=== PATIENT | female | born 1980 ===

== ENCOUNTER 2016-10-04 17:49 | Emergency (ER) | payer SELFPAY ==
[2016-10-04 18:00] VITALS: BMI 35.9
--- NOTE | 2016-10-04 18:07 | ED PDOC ---
Arrival/HPI - General Chief Complaint: Female Genitourinary Time Seen by Provider: 10/04/16 18:06 Historian: Patient - History of Present Illness Narrative History of Present Illness (Text): 10/04/16 18:07 36 y/o female, no pmh, nkda, LMP 09/09/2016 and not sure about the age of gestation for this , , c/o vaginal spotting on and off with lower back pain x 1 week with no fall or trauma. Aching and cramping pain, no fever or chills, no urinary symptoms, no fatigue or lethargic, no night sweat, no rash , no weight loss, no other medical or psychological complaints. Past Medical History - Provider Review Nursing Documentation Reviewed: Yes - Infectious Disease Hx of Infectious Diseases: None - Psychiatric Hx Substance Use: No - Surgical History Hx Section: Yes (x2) - Anesthesia Hx Anesthesia: Yes Hx Anesthesia Reactions: No Family/Social History - Physician Review Nursing Documentation Reviewed: Yes Family/Social History: Unknown Family HX Smoking Status: Never Smoked Hx Alcohol Use: No Hx Substance Use: No Allergies/Home Meds Allergies/Adverse Reactions: Allergies No Known Allergies Allergy (Verified 10/04/16 17:59) Home Medications: Home Meds Medication Instructions Recorded Confirmed No Known Home Med 10/04/16 10/04/16 Review of Systems - Review of Systems Constitutional: absent: Fatigue, Fevers Eyes: absent: Vision Changes ENT: absent: Hearing Changes, Sore Throat, Rhinorrhea Respiratory: absent: SOB, Cough Cardiovascular: absent: Chest Pain Gastrointestinal: absent: Abdominal Pain, Nausea, Vomiting Genitourinary Female: Vaginal Bleeding. absent: Dysuria, Frequency, Hematuria, Urine Output Changes, Vaginal Discharge Musculoskeletal: absent: Arthralgias, Back Pain Skin: absent: Rash, Pruritis, Skin Lesions Neurological: absent: Headache, Dizziness Physical Exam Vital Signs Reviewed: Yes Vital Signs Temp Pulse Resp BP Pulse Ox 10/04/16 18:03 98.7 F 77 19 133/83 98 Temperature: Afebrile Blood Pressure: Normal Pulse: Regular Respiratory Rate: Normal Appearance: Positive for: Well-Appearing, Non-Toxic, Comfortable Pain Distress: None Mental Status: Positive for: Alert and Oriented X 3 - Systems Exam Head: Present: Atraumatic, Normocephalic Pupils: Present: PERRL Extroacular Muscles: Present: EOMI Conjunctiva: Present: Normal Mouth: Present: Moist Mucous Membranes Respiratory/Chest: Present: Clear to Auscultation, Good Air Exchange. No: Respiratory Distress, Accessory Muscle Use Cardiovascular: Present: Regular Rate and Rhythm, Normal S1, S2. No: Murmurs Abdomen: Present: Normal Bowel Sounds. 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 No: Vaginal Discharge, Vaginal Bleeding, Vaginal Lesions, Adenexal Tenderness, Adenexal Mass , Cervical Motion Tendernes, Odor Back: Present: Normal Inspection Upper Extremity: Present: Normal Inspection. No: Cyanosis, Edema Lower Extremity: Present: Normal Inspection. No: Edema Neurological: Present: GCS=15, Speech Normal, Motor Func Grossly Intact, Memory Normal Skin: Present: Warm, Dry, Normal Color. No: Rashes Psychiatric: Present: Alert, Oriented x 3, Normal Insight, Normal Concentration Medical Decision Making ED Course and Treatment: 10/04/16 18:07 -labs/ua/type and screen/beta hcg -transvaginal sonogram -observe and reassess 10/04/16 21:45 -Labs are non-significant except beta hcg 82631 -UA show no UTI -Sonogram show 5 week 4 day single intrauterine gestation estimated dated delivery 06/02/17 -Blood type O+ -Discharge home with education on follow up with your own pmd and obgyn within 2 days for repeat [place] [address], bed rest, no sexual activities until clear by the obgyn, elevation, pelvic rest, return to the ER for any new or worsening signs or symptoms. - Lab Interpretations Lab Results: 10/04/16 18:40 10/04/16 18:40 Lab Results 10/04/16 18:40: Blood Type O POSITIVE, Antibody Screen Negative, BBK History Checked No verified bt 10/04/16 18:40: Beta HCG, Quant 02279.00 H 10/04/16 18:40: Sodium 138, Potassium 3.7, Chloride 104, Carbon Dioxide 22, Anion Gap 16, BUN 21, Creatinine 0.6, Est GFR ( Amer) > 60, Est GFR (Non- Af Amer) > 60, Random Glucose 95, Calcium 9.0, Total Bilirubin 0.6, AST 23, ALT 27, Alkaline Phosphatase 63, Total Protein 7.7, Albumin 4.4, Globulin 3.4, Albumin/Globulin Ratio 1.3 10/04/16 18:40: Urine Color Yellow, Urine Appearance Clear, Urine pH 6.0, Ur Specific Schwertner 1.025, Urine Protein 30 H, Urine Glucose (UA) Negative, Urine Ketones Negative, Urine Blood Large H, Urine Nitrate Negative, Urine Bilirubin Negative, Urine Urobilinogen 0.2, Ur Leukocyte Esterase Negative, Urine RBC 5 - 10, Urine WBC 2 - 5, Ur Epithelial Cells 10 - 12, Urine Bacteria Few 10/04/16 18:40: WBC 8.6, RBC 4.26, Hgb 13.1, Hct 36.9, MCV 86.6, MCH 30.8, MCHC 35.5, RDW 13.3, Plt Count 192, MPV 9.6, Gran % 68.1 H, Lymph % (Auto) 25.7, [place] % (Auto) 5.4, Eos % (Auto) 0.7 L, Baso % (Auto) 0.1, Gran # 5.85, Lymph # 2.2, [place] # 0.5, Eos # 0.1, Baso # 0.01 I have reviewed the lab results: Yes Interpretation: Abnormal lab values (beta hcg 98748) - RAD Interpretation Radiology Orders: 10/04/16 18:07 OB TRANSVAGINAL [US] Stat [facility] Division of Radiology [address] [address] Tel. no. Patient Name: JUAN C HUTCHISON Pt. Address: [address] [place] [address] Rec #: [id number] [place] [address]: Lucy REYNOSO,Segundo Pate Pt CELL Order Location: ED : 1980 Female Age: 36 Order #: [id number] Reason for exam: vaginal bleeding, approx. 12 weeks? Ultrasound OB TRANSVAGINAL Exam Date: 10/04/16 This imaging exam was performed at [facility] EXAM: US First Trimester, Transabdominal CLINICAL HISTORY: 36 years old, female; Pain; complicated by abdominal or pelvic pain; Left lower quadrant; First trimester; Gestational age or lmp: 08-10-2016 ; ; Additional info: Vaginal bleeding, approx. 12 weeks? TECHNIQUE: Real-time transabdominal obstetrical ultrasound of the maternal pelvis and a first trimester with image documentation. COMPARISON: There are no prior studies for comparison. FINDINGS: Gestation: There is a small gestational sac in the uterus difficult to characterize Uterus: Uterus measures approximately 10 x 4.2 x 7.3 cm. There is a small gestational sac in the uterine fundus. Endometrium in the uterine body measures 6.6 mm in width. The cervix measures approximately 4 cm in length. Ovaries: Neither ovary could be identified Free fluid: There is no free fluid. IMPRESSION: Early intrauterine gestation difficult to characterize EXAM: US , Transvaginal CLINICAL HISTORY: 36 years old, female; Pain; complicated by abdominal or pelvic pain; Left lower quadrant; First trimester; Gestational age or lmp: 08-10-2016 ; ; Additional info: Vaginal bleeding, approx. 12 weeks? TECHNIQUE: Real-time transvaginal obstetrical ultrasound of the maternal pelvis and a first trimester with image documentation. Transvaginal imaging was used for better evaluation of the fetus and adnexa. EXAM DATE/TIME: 10/04/2016 6:07 PM COMPARISON: There are no prior studies for comparison. FINDINGS: Gestation: There is a single intrauterine gestation. Gestational sac has mean diameter 12.8 mm. A yolk sac is present, internal diameter measures approximately 3 mm. Structure suggestive of a pole measures 2.2 mm. Cardiac activity could not be visualized at this time Uterus: Uterus is retroflexed. Cervix measures approximately 3 point centimeters in line Ovaries: Right ovary measures approximately 3.2 x 1.8 x 2.4 cm. There is a corpus luteum in the right ovary. Left ovary measures approximately 2.5 x 1.9 x 1.4 cm. There are multiple follicles in the left ovary. There is flow in both ovaries on Doppler imaging. Free fluid: There is no free fluid. IMPRESSION: 5 week 4 day single intrauterine gestation estimated dated delivery 06/02/17 Followup suggested to document development of cardiac activity Dictated By: Shital Jo MD, MD Dictated Date/Time: 10/04/162038 Signed By: Shital Jo MD Date Signed: 2038 Transcribed By: CHANTE Transcribe Date/Time : 10/04/162038 Career Center Director: Radiologist - PA / WIND UP WORKER / Resident Statement MD/DO has reviewed & agrees with the documentation as recorded. Disposition/Present on Arrival - Present on Arrival Any Indicators Present on Arrival: No History of DVT/PE: No History of Uncontrolled Diabetes: No Urinary Catheter: No History of Decub. Ulcer: No History Surgical Site Infection Following: None - Disposition Have Diagnosis and Disposition been Completed?: Yes Diagnosis: , Vaginal bleeding Disposition: HOME/ ROUTINE Disposition Time: 21:49 Patient Plan: Discharge Condition: GOOD Additional Instructions: -Discharge home with education on follow up with your own pmd and obgyn within 2 days for [place] [address], bed rest, no sexual activities until clear by the obgyn, elevation, pelvic rest, return to the ER for any new or worsening signs or symptoms. Referrals: Bozena Hui CNM, RN [Primary Care Provider] - Follow up with primary Wallace Mejia MD [Staff Provider] - Follow up with primary Forms: [employer] (Kazakh), WORK NOTE
[2016-10-04 18:58] LABS: BASO # 0.01 K/mm3 (0.0-2.0); BASO % 0.1 % (0.0-3.0); EOS # 0.1 (0.0-0.7); EOS % 0.7 % (1.5-5.0); GRAN # 5.85 (1.4-6.5); GRAN % 68.1 % (50.0-68.0); HEMOGLOBIN 13.1 g/dL (12.0-16.0); LYMPH # 2.2 (1.2-3.4); LYMPH % 25.7 % (22.0-35.0); MEAN CELL VOLUME 86.6 fl (80.0-105.0); MEAN CORPUSCULAR HEMOGLOBIN 30.8 pg (25.0-35.0); MEAN CORPUSCULAR HGB CONC 35.5 g/dl (31.0-37.0); MEAN PLATELET VOLUME 9.6 fl (7.0-11.0); MONO # 0.5 (0.1-0.6); MONO % 5.4 % (1.0-6.0); PLATELET COUNT 192 10^3/uL (120.0-450.0); RBC 4.26 10^6/uL (3.5-6.1); RED CELL DISTRIBUTION WIDTH 13.3 % (11.5-14.5); URINE BILIRUBIN NEGATIVE (NEGATIVE); URINE BLOOD LARGE (NEGATIVE); URINE GLUCOSE (UA) NEGATIVE (NEGATIVE); URINE LEUKOCYTE ESTERASE NEGATIVE Leu/uL (NEGATIVE); URINE NITRATE NEGATIVE (NEGATIVE); URINE PROTEIN 30 mg/dL (<30 mg/dL); URINE UROBILINOGEN 0.2 E.U./dL (<1 E.U./dL); WHITE BLOOD COUNT 8.6 10^3/ul (4.5-11.0)
[2016-10-04 19:05] LABS: URINE APPEARANCE CLEAR (CLEAR); URINE COLOR YELLOW (YELLOW)
[2016-10-04 19:09] LABS: ALB/GLOB RATIO 1.3 (1.1-1.8); ALBUMIN 4.4 g/dL (3.0-4.8); ALT/SGPT 27 U/L (7-56); AST/SGOT 23 U/L (15-39); BLOOD UREA NITROGEN 21 mg/dL (7-21); GFR AFRICAN-AMERICAN > 60; GFR NON-AFRICAN AMERICAN > 60
[2016-10-04 19:12] LABS: URINE BACTERIA FEW (NEG)
--- NOTE | 2016-10-04 20:39 | US ---
EXAM: US First Trimester, Transabdominal CLINICAL HISTORY: 36 years old, female; Pain; complicated by abdominal or pelvic pain; Left lower quadrant; First trimester; Gestational age or lmp: 08-10-2016; ; Additional info: Vaginal bleeding, approx. 12 weeks? TECHNIQUE: Real-time transabdominal obstetrical ultrasound of the maternal pelvis and a first trimester with image documentation. COMPARISON: There are no prior studies for comparison. FINDINGS: Gestation: There is a small gestational sac in the uterus difficult to characterize Uterus: Uterus measures approximately 10 x 4.2 x 7.3 cm. There is a small gestational sac in the uterine fundus. Endometrium in the uterine body measures 6.6 mm in width. The cervix measures approximately 4 cm in length. Ovaries: Neither ovary could be identified Free fluid: There is no free fluid. IMPRESSION: Early intrauterine gestation difficult to characterize EXAM: US , Transvaginal CLINICAL HISTORY: 36 years old, female; Pain; complicated by abdominal or pelvic pain; Left lower quadrant; First trimester; Gestational age or lmp: 08-10-2016; ; Additional info: Vaginal bleeding, approx. 12 weeks? TECHNIQUE: Real-time transvaginal obstetrical ultrasound of the maternal pelvis and a first trimester with image documentation. Transvaginal imaging was used for better evaluation of the fetus and adnexa. EXAM DATE/TIME: 10/04/2016 6:07 PM COMPARISON: There are no prior studies for comparison. FINDINGS: Gestation: There is a single intrauterine gestation. Gestational sac has mean diameter 12.8 mm. A yolk sac is present, internal diameter measures approximately 3 mm. Structure suggestive of a pole measures 2.2 mm. Cardiac activity could not be visualized at this time Uterus: Uterus is retroflexed. Cervix measures approximately 3 point centimeters in line Ovaries: Right ovary measures approximately 3.2 x 1.8 x 2.4 cm. There is a corpus luteum in the right ovary. Left ovary measures approximately 2.5 x 1.9 x 1.4 cm. There are multiple follicles in the left ovary. There is flow in both ovaries on Doppler imaging. Free fluid: There is no free fluid. IMPRESSION: 5 week 4 day single intrauterine gestation estimated dated delivery 06/02/17 Followup suggested to document development of cardiac activity
[2016-10-04 22:00] VITALS: BP 131/85; PULSE 80; RESP 18; TEMP 98.2; O2SAT 99
== END 2016-10-04 22:00 | disposition home or self-care (01) ==
LOC: ED 17:49
DX: O46.91 Antepartum hemorrhage, unspecified, first trimester (principal); Z3A.01 Less than 8 weeks gestation of pregnancy

== ENCOUNTER 2016-10-15 16:21 | Emergency (ER) | payer SELFPAY ==
[2016-10-15 16:21] VITALS: BMI 35.9
[2016-10-15 16:52] VITALS: RESP 18; TEMP 98.2
--- NOTE | 2016-10-15 17:14 | ED PDOC ---
"Arrival/HPI - General Chief Complaint: Female Genitourinary Time Seen by Provider: 10/15/16 17:07 Historian: Patient, Spouse - History of Present Illness Narrative History of Present Illness (Text): 10/15/16 17:08 This 36 yo female , , LMP: 09-09-2016, presents to this ED c/o passing of product of conception vaginally x 1 hour. Patient stated patient had a positive test on 10-04-2016. 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 Patient was recommended to come to ED. Patient was seen in this ED . Patient stated vaginal bleeding worsen x 3 days ago, so she went to [facility]. Patient stated ultrasound did not visualized embryo, and she was told she maybe having a miscarriage. Patient stated vaginal bleeding , and pelvic pain worsen today. She stated she saw tissue passing vaginally today. Pelvic pain improved after passing tissue. Denies other complains. Time/Duration: Other (see hpi) Context: Home Past Medical History - Provider Review Nursing Documentation Reviewed: Yes - Infectious Disease Hx of Infectious Diseases: None - Psychiatric Hx Substance Use: No - Surgical History Hx Section: Yes (x2) - Anesthesia Hx Anesthesia: Yes Hx Anesthesia Reactions: No Hx Malignant Hyperthermia: No Family/Social History - Physician Review Nursing Documentation Reviewed: Yes Family/Social History: Other (non-contributory) Smoking Status: Never Smoked Hx Alcohol Use: No Hx Substance Use: No Allergies/Home Meds Allergies/Adverse Reactions: Allergies No Known Allergies Allergy (Verified 10/15/16 16:47) Home Medications: Home Meds Medication Instructions Recorded Confirmed No Known Home Med 10/04/16 10/15/16 Review of Systems - Review of Systems Constitutional: Normal. absent: Fatigue, Weight Change, Fevers Eyes: Normal ENT: Normal Respiratory: Normal. absent: SOB, Cough Cardiovascular: Normal. absent: Chest Pain, Palpitations Gastrointestinal: Normal. absent: Nausea, Vomiting Genitourinary Female: Vaginal Bleeding, Other (pelvic pain). absent: Dysuria, Frequency, Hematuria, Vaginal Discharge Musculoskeletal: Normal. absent: Back Pain, Neck Pain Skin: Normal. absent: Rash Neurological: Normal. absent: Headache, Dizziness, Focal Weakness, Gait Changes , Speech Changes, Facial Droop, Disequilibrium, Seizure Endocrine: Normal Hemo/Lymphatic: Normal Psychiatric: Normal Physical Exam Vital Signs Temp Pulse Resp BP Pulse Ox 10/15/16 20:59 80 18 137/74 100 10/15/16 17:50 79 18 130/75 99 10/15/16 16:52 98.2 F 84 18 132/78 99 Temperature: Afebrile Blood Pressure: Normal Pulse: Regular Respiratory Rate: Normal Appearance: Positive for: Well-Appearing, Non-Toxic, Comfortable Pain Distress: None Mental Status: Positive for: Alert and Oriented X 3 - Systems Exam Head: Present: Atraumatic, Normocephalic Pupils: Present: PERRL Extroacular Muscles: Present: EOMI Conjunctiva: Present: Normal Mouth: Present: Moist Mucous Membranes Neck: Present: Normal Range of Motion Respiratory/Chest: Present: Clear to Auscultation, Good Air Exchange. No: Respiratory Distress, Accessory Muscle Use Cardiovascular: Present: Regular Rate and Rhythm, Normal S1, S2. No: Murmurs Abdomen: Present: Normal Bowel Sounds. No: Tenderness, Distention, Peritoneal Signs Back: Present: Normal Inspection Upper Extremity: Present: Normal Inspection. No: Cyanosis, Edema Lower Extremity: Present: Normal Inspection. No: Edema Neurological: Present: GCS=15, CN II-XII Intact, Speech Normal Skin: Present: Warm, Dry, Normal Color. No: Rashes Psychiatric: Present: Alert, Oriented x 3, Normal Insight, Normal Concentration Medical Decision Making ED Course and Treatment: 10/15/16 20:33 Patient is resting comfortably, and is in no acute distress. Patient was instructed to follow up with PMD in 1-2 days for further evaluation. Patient stated she is feeling better than when she arrived to ED. We reviewed ultrasound report. 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 She was recommended to return to emergency if symptoms worsen. Re-evaluation Time: 20:33 Reassessment Condition: Re-examined, Improved - Lab Interpretations Lab Results: 10/15/16 17:20 10/15/16 17:20 Lab Results 10/15/16 17:20: Beta HCG, Quant 8807.10 H 10/15/16 17:20: Sodium 138, Potassium 3.7, Chloride 102, Carbon Dioxide 24, Anion Gap 16, BUN 15, Creatinine 0.5, Est GFR ( Amer) > 60, Est GFR (Non- Af Amer) > 60, Random Glucose 94, Calcium 9.6 10/15/16 17:20: WBC 8.5, RBC 4.18, Hgb 12.7, Hct 35.9 L, MCV 85.9, MCH 30.4, MCHC 35.4, RDW 13.2, Plt Count 201, MPV 9.4, Gran % 63.3, Lymph % (Auto) 30.9, [place] % (Auto) 4.7, Eos % (Auto) 0.9 L, Baso % (Auto) 0.2, Gran # 5.39, Lymph # 2.6, [place] # 0.4, Eos # 0.1, Baso # 0.02 I have reviewed the lab results: Yes Interpretation: No clinic. lab abnormalty - RAD Interpretation Narrative RAD Interpretations (Text): 10/15/16 20:32 [facility] Final Radiology Report Call: [phone] assistance Online chat: [email or web address] Patient Name: JUAN C HUTCHISON FINDINGS: Gestation: No intrauterine gestational sac. Uterus/cervix: Endometrium: 1.4 cm in thickness. Closed cervix. Ovaries: Normal ovaries. No adnexal masses. Free fluid: No significant free fluid. IMPRESSION: 1. Findings compatible with spontaneous . 2. Incidental/non-acute findings are described above. EXAM: US , Transvaginal CLINICAL HISTORY: 36 years old, female; Signs and symptoms; Lmp or gestational age (in weeks): ; Other: Bleeding clots; ; Additional info: Vaginal cramping TECHNIQUE: JUAN C HUTCHISON | Final Radiology Report CONFIDENTIALITY STATEMENT This report is intended only for use by the referring physician, and only in accordance with law. If you received this in error, call [phone]. Page 2 of 2 Real-time transvaginal obstetrical ultrasound of the maternal pelvis and a first trimester with image documentation. Transvaginal imaging was used for better evaluation of the fetus and adnexa. COMPARISON: US - OB TRANSVAGINAL 10/04/2016 6:58:07 PM FINDINGS: Gestation: No intrauterine gestational sac. Uterus/cervix: Endometrium: 1.4 cm in thickness. Closed cervix. Ovaries: Normal ovaries. No adnexal masses. Free fluid: No significant free fluid. IMPRESSION: 1. Findings compatible with spontaneous . 2. Incidental/non-acute findings are described above. Thank you for allowing us to participate in the care of your patient. Dictated and Authenticated by: Jeff Farris MD 10/15/2016 8:26 PM Eastern Time ([place] & [place]) Radiology Orders: 10/15/16 17:15 OB TRANSVAGINAL [US] Stat Disposition/Present on Arrival - Present on Arrival Any Indicators Present on Arrival: No History of DVT/PE: No History of Uncontrolled Diabetes: No Urinary Catheter: No History of Decub. Ulcer: No History Surgical Site Infection Following: None - Disposition Have Diagnosis and Disposition been Completed?: Yes Diagnosis: , spontaneous Disposition: HOME/ ROUTINE Disposition Time: 20:34 Patient Plan: Discharge Condition: GOOD Discharge Instructions (ExitCare): Spontaneous Miscarriage (ED) Additional Instructions: Llame a webb ginecologo manana para un seguimiento medico. Regrese a la emergenci si desarrolla dolor or si sangreamento empeora Referrals: Giovanny Brumfield, [Non-Staff] - Follow up with primary Bozena Hui CNM, RN [Certified Nurse Power Marketer] - Follow up with primary [facility] [Outside] - Follow up with [facility] [Outside] - Follow up with primary Forms: [employer] (Hungarian)"
[2016-10-15 17:34] LABS: BASO # 0.02 K/mm3 (0.0-2.0); BASO % 0.2 % (0.0-3.0); EOS # 0.1 (0.0-0.7); EOS % 0.9 % (1.5-5.0); GRAN # 5.39 (1.4-6.5); GRAN % 63.3 % (50.0-68.0); HEMATOCRIT 35.9 % (36.0-48.0); LYMPH # 2.6 (1.2-3.4); LYMPH % 30.9 % (22.0-35.0); MEAN CELL VOLUME 85.9 fl (80.0-105.0); MEAN CORPUSCULAR HEMOGLOBIN 30.4 pg (25.0-35.0); MEAN CORPUSCULAR HGB CONC 35.4 g/dl (31.0-37.0); MEAN PLATELET VOLUME 9.4 fl (7.0-11.0); MONO # 0.4 (0.1-0.6); MONO % 4.7 % (1.0-6.0); RED CELL DISTRIBUTION WIDTH 13.2 % (11.5-14.5); WHITE BLOOD COUNT 8.5 10^3/ul (4.5-11.0)
[2016-10-15 17:43] LABS: BLOOD UREA NITROGEN 15 mg/dL (7-21); CALCIUM 9.6 mg/dL (8.4-10.5); CARBON DIOXIDE 24 mmol/L (21-33); CHLORIDE 102 mmol/L (98-107); GFR AFRICAN-AMERICAN > 60; GLUCOSE,RANDOM 94 mg/dL (70-110); POTASSIUM 3.7 mmol/L (3.6-5.0); SODIUM 138 mmol/L (132-148)
--- NOTE | 2016-10-15 20:27 | US ---
EXAM: US First Trimester, Transabdominal CLINICAL HISTORY: 36 years old, female; Signs and symptoms; Lmp or gestational age (in weeks): 08/10/16; Other: Bleeding clots; ; Additional info: Vaginal cramping TECHNIQUE: Real-time transabdominal obstetrical ultrasound of the maternal pelvis and a first trimester with image documentation. COMPARISON: US - OB TRANSVAGINAL 10/04/2016 6:58:07 PM FINDINGS: Gestation: No intrauterine gestational sac. Uterus/cervix: Endometrium: 1.4 cm in thickness. Closed cervix. Ovaries: Normal ovaries. No adnexal masses. Free fluid: No significant free fluid. IMPRESSION: 1. Findings compatible with spontaneous . 2. Incidental/non-acute findings are described above. EXAM: US , Transvaginal CLINICAL HISTORY: 36 years old, female; Signs and symptoms; Lmp or gestational age (in weeks): 08/10/16; Other: Bleeding clots; ; Additional info: Vaginal cramping TECHNIQUE: Real-time transvaginal obstetrical ultrasound of the maternal pelvis and a first trimester with image documentation. Transvaginal imaging was used for better evaluation of the fetus and adnexa. COMPARISON: US - OB TRANSVAGINAL 10/04/2016 6:58:07 PM FINDINGS: Gestation: No intrauterine gestational sac. Uterus/cervix: Endometrium: 1.4 cm in thickness. Closed cervix. Ovaries: Normal ovaries. No adnexal masses. Free fluid: No significant free fluid.
[2016-10-15 21:00] VITALS: BP 137/74; PULSE 80; O2SAT 100
== END 2016-10-15 20:58 | disposition home or self-care (01) ==
LOC: ED 16:21
DX: O03.9 Complete or unspecified spontaneous abortion without complication (principal)